=== PATIENT | male | born 1985 | race Caucasian/White ===

== ENCOUNTER 2016-10-21 11:08 | Emergency (ER) | payer SELFPAY ==
[~2016-10-21 11:08] MED LIST: ACETAMINOPHEN325 MG PO; CELEXA20 MG PO; CLINDAMYCIN HC300 MG PO; DOXYCYCLINE HY100 MG PO; HUMALOG100 UNIT/1 SQ; IBUPROFEN800 MG PO; LANTUS100 UNIT/1 SQ; LISINOPRIL10 MG PO; NEURONTIN800 MG PO; OMEPRAZOLE40 MG PO; ULTRAM50 MG PO
== END 2016-10-21 14:20 | disposition home or self-care (01) ==
LOC: ER 11:08
DX: E11.65 Type 2 diabetes mellitus with hyperglycemia (principal); R11.2 Nausea with vomiting, unspecified; I10 Essential (primary) hypertension; F17.220 Nicotine dependence, chewing tobacco, uncomplicated; Z89.511 Acquired absence of right leg below knee; Z79.899 Other long term (current) drug therapy; Z79.82 Long term (current) use of aspirin; Z79.4 Long term (current) use of insulin; Z88.2 Allergy status to sulfonamides
CPT/HCPCS: 36415; 96361; 96374; 96375; J2550

== ENCOUNTER 2016-12-14 19:57 | Emergency (ER) | payer SELFPAY | END 2016-12-14 21:29 | disposition home or self-care (01) | LOC: ER 19:57 | DX: S61.213A Laceration without foreign body of left middle finger without damage to nail, initial encounter (principal); S61.215A Laceration without foreign body of left ring finger without damage to nail, initial encounter; E10.9 Type 1 diabetes mellitus without complications; I10 Essential (primary) hypertension; F17.220 Nicotine dependence, chewing tobacco, uncomplicated; Z79.82 Long term (current) use of aspirin; Z88.2 Allergy status to sulfonamides; Z23 Encounter for immunization; W26.8XXA Contact with other sharp object(s), not elsewhere classified, initial encounter; Y92.009 Unspecified place in unspecified non-institutional (private) residence as the place of occurrence of the external cause | CPT/HCPCS: 90471 ==